=== PATIENT | male | born 1940 | race Caucasian/White ===

== ENCOUNTER 2016-12-31 07:36 | Day surgery (SDC) | payer OTHER, BC ==
[2016-12-29 13:56] VITALS: BMI 24.9
[2016-12-31] MEDS ORDERED: oxyCODONE HCL 5 MG TABLET PO PRN (09:04)
[2016-12-31] MEDS ORDERED: ONDANSETRON 4 MG/2 ML VIAL IVPUSH PRN (09:04)
[2016-12-31] MEDS ORDERED: IBUPROFEN 800 MG/8 ML IJ IVPB PRN (09:04)
[2016-12-31] MEDS ORDERED: BUPIVACAINE HCL/PF 0.5% (5MG/ML) 10 ML VIAL ONE (09:05)
[2016-12-31] MEDS ORDERED: LIDOCAINE 1%/EPI 1:100000 (50 ML MULTI DOSE VIAL) ONE (09:05)
[2016-12-31] MEDS ORDERED: LIDOCAINE HCL/PF 2% SDV 5ML VIAL ONE (09:09)
[2016-12-31] MEDS ORDERED: PROPOFOL 20 ML ONE (09:09)
[2016-12-31] MEDS ORDERED: SUCCINYLCHOLINE CHLORIDE 200 MG/10 ML VIAL ONE (09:10)
[2016-12-31] MEDS ORDERED: MIDAZOLAM HCL 2 MG/2 ML SINGLE DOSE VIAL ONE (09:10)
[2016-12-31] MEDS ORDERED: LACTATED RINGERS SOLUTION 1,000 ML IV SCH ×2 (09:15→10:00)
[2016-12-31] MEDS ORDERED: CLINDAMYCIN PHOSPHATE 600 MG/4 ML VIAL IVPB ONE (09:33)
[2016-12-31] MEDS ORDERED: CLINDAMYCIN PHOSPHATE 600 MG/4 ML VIAL ONE (09:34)
[2016-12-31] MEDS ORDERED: ROCURONIUM BROMIDE 50 MG/5 ML VIAL ONE (09:38)
[2016-12-31] MEDS ORDERED: LIDOCAINE 1%/EPI 1:100000 (20 ML MULTI DOSE VIAL) IJ ONE ×2 (09:50)
[2016-12-31] MEDS ORDERED: NEOSTIGMINE METHYLSULFATE 0.5 MG/ML - 10 ML MDV ONE (09:54)
[2016-12-31] MEDS ORDERED: GLYCOPYRROLATE 0.2 MG/1 ML VIAL ONE ×2 (09:54→10:08)
--- NOTE | 2016-12-31 11:06 | OP ---
DATE OF OPERATION: 12/31/2016 SURGICAL ATTENDING: Kingston Stevenson MD PREOPERATIVE DIAGNOSIS: Left tongue mass. POSTOPERATIVE DIAGNOSIS: Left tongue mass. ANESTHESIA: General endotracheal. PROCEDURE: Left tongue mass excision. DESCRIPTION OF PROCEDURE: The patient was taken to the operating room, placed in a supine position, endotracheally intubated. Eyes were protected. Examination revealed a subcentimeter left dorsal tongue nodule which was darkened in color and palpable. No other lesion in the mouth was identified. Lidocaine 1% with epinephrine mixed with 0.50% Marcaine was injected in and around the area of the lesion. Some time was allowed to pass for the local anesthesia to take effect. Thereafter, a 15 blade was used to excise the mass. The mass was excised entirely and intact. It was passed off the field for evaluation by Pathology. Hemostasis was achieved with electrocautery. The wound was then closed with four 4-0 plain sutures. Hemostasis was achieved. The mouth was suctioned. The patient was then extubated, awakened, and taken to recovery in stable condition. Dr. Stevenson, the attending surgeon, was present throughout the entire procedure. KINGSTON STEVENSON M.D. [id number]
[2016-12-31] MEDS ORDERED: oxyCODONE HCL 5 MG TABLET ONE (11:44)
[2016-12-31 11:46] VITALS: TEMP 98
[2016-12-31 12:50] VITALS: BP 127/76; PULSE 64
--- NOTE | 2017-01-03 09:46 | PATH ---
Surgical Pathology Report Patient Name: [facility]. Rec. #: [id number] /Age/Gender: 1940 (Age: 76) / M Account: [id number] Location: [facility] SURGICAL Taken: 12/31/2016 Received: 12/31/2016 Reported: 01/03/2017 Physicians: Collin Madrid M.D. Specimen(s) Received LEFT TONGUE MASS Clinical History Left tongue mass Final Diagnosis LEFT TONGUE MASS, EXCISION: BENIGN SQUAMOUS MUCOSA WITH THROMBOSED BLOOD VESSEL SHOWING ORGANIZATION WITH ENDOTHELIAL HYPERPLASIA, CONSISTENT WITH PAPILLARY ENDOTHELIAL HYPERPLASIA (SHEREEN TUMOR). NO MALIGNANT FEATURES IDENTIFIED. Electronically Signed Sebastien Valentin M.D. Gross Description Received in formalin labeled "left tongue mass," is a 0.8 x 0.6 cm bhatia, elliptical, unoriented portion of soft tissue excised to depth of 0.5 cm. Sectioning reveals a red-brown parenchyma. The base is inked blue and the specimen is trisected. The specimen is entirely submitted in one cassette. /12/31/201612/31/2016
== END 2016-12-31 12:25 | disposition home or self-care (01) ==
LOC: JASU-SURG 07:36
PROVIDERS: ATTEND Surgery
PROC: 0CB70ZX Excision of Tongue, Open Approach, Diagnostic (ICD-10-PCS; principal; 2016-12-31 09:00)
DX: D49.0 Neoplasm of unspecified behavior of digestive system (principal)
CPT/HCPCS: 88305-TC; 94760

== ENCOUNTER 2017-01-01 02:42 | Emergency (ER) | payer OTHER, BC ==
[2017-01-01 03:02] VITALS: BP 174/96; PULSE 115; TEMP 98.1; BMI 24.8
--- NOTE | 2017-01-01 04:23 | PDOC ---
History of Present Illness - General Chief Complaint: Urinary Problem Stated Complaint: PAIN, URINARY PROBLEM Time Seen by Provider: 01/01/17 04:08 History Source: Patient Exam Limitations: No Limitations - History of Present Illness Travel History: No Initial Comments: 01/01/17 04:23 76yo Male patient presents to ED c/o urinary retention s/p oral surgery. Patient had surgery [address] Madrid (Oncology) for mass on tongue. Patient states he has not voided since he was discharged 2 days ago. Patient reports he has been eating and drinking but no output. He denies fever, CP, diff breathing, hematuria, back pain, n/v/d, or any other complaints at this time. +Oliguria. Timing/Duration: reports: getting worse Quality: reports: severe, other (Pressure) Abdominal Pain Onset Location: reports: suprapubic Pain Radiation: reports: no radiation Past History - Travel Traveled outside of the country in the last 30 days: No Close contact w/someone who was outside of country & ill: No - Past Medical History Allergies/Adverse Reactions: Allergies Allergy/AdvReac Type Severity Reaction Status Date / Time Penicillins Allergy Intermediate Verified 01/01/17 03:02 ketoconazole AdvReac Intermediate Verified 01/01/17 03:02 Home Medications: Ambulatory Orders Omeprazole Magnesium [Prilosec Otc] 20 mg PO DAILY #0 tablet. 08/11/11 Aspirin [ASA -] 81 mg PO DAILY 12/29/16 Atorvastatin Ca [Lipitor] 10 mg PO DAILY 12/29/16 Lisinopril 2.5 mg PO DAILY 12/29/16 Anemia: No Asthma: No Cancer: No Cardiac Disorders: No CVA: No COPD: No CHF: No Dementia: No Diabetes: No GI Disorders: No Disorders: No HTN: Yes Hypercholesterolemia: Yes Liver Disease: No Seizures: No Thyroid Disease: No - Surgical History Abdominal Surgery: Yes (COLON RESECTION FOR DIVERTICULITIS 2011) Appendectomy: No Cardiac Surgery: No Cholecystectomy: No Lung Surgery: No Neurologic Surgery: No Orthopedic Surgery: No - Suicide/Smoking/Psychosocial Hx Smoking Status: No Smoking History: Never smoked Number of Cigarettes Smoked Daily: 0 Hx Alcohol Use: Yes (1-2/DAY) Drug/Substance Use Hx: No Substance Use Type: None Hx Substance Use Treatment: No Abd/GI Specific PMHX - Complaint Specific PMHX Colitis: No Diverticulitis: No Gall Bladder Disease: No GERD: No Hepatitis: No Irritable Bowel Synd (IBS): No Pancreatitis: No GI Ulcer Disease: No Review of Systems - Review of Systems Able to Perform ROS?: Yes Is the patient limited Sammarinese proficient: No ABD/GI: Yes: Abdominal Distended. No: Constipated, Diarrhea, Nausea, Poor Appetite, Poor Fluid Intake, Rectal Bleeding, Vomiting, Abdominal cramping : Yes: Pain, Other (Oliguria). No: Burning, Dysuria, Discharge, Frequency, Flank Pain, Hematuria, Urgency, Testicular Mass, Testicular Swelling, Testicular Pain Musculoskeletal: No: Back Pain All Other Systems: Reviewed and Negative *Physical Exam - Vital Signs Last Vital Signs Temp Pulse Resp BP Pulse Ox 98.1 F 115 H 20 174/96 99 01/01/17 02:58 01/01/17 02:58 01/01/17 02:58 01/01/17 02:58 01/01/17 02:58 - Physical Exam General Appearance: Yes: Nourished, Appropriately Dressed. No: Apparent Distress, Mild Distress, Moderate Distress, Severe Distress Respiratory/Chest: positive: Lungs Clear, Normal Breath Sounds. negative: Chest Tender, Respiratory Distress, Accessory Muscle Use, Labored Respiration, Rapid RR, Paradoxal Breathing, Stridor, Wheezing Cardiovascular: positive: Regular Rhythm, Regular Rate Gastrointestinal/Abdominal: positive: Normal Bowel Sounds, Tender, Soft, Distended, Tenderness (Suprapubic). negative: Guarding, Rebound Musculoskeletal: positive: Normal Inspection. 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 intact, Fully Oriented, Alert, Normal Mood/ Affect, Normal Response, Motor Strength / ED Treatment Course - LABORATORY CBC & Chemistry Diagram: 01/01/17 04:48 01/01/17 04:48 *DC/Admit/Observation/Transfer Diagnosis at time of Disposition: Retention of urine - Discharge Dispostion Disposition: HOME Condition at time of disposition: Improved Admit: No - Referrals Referrals: Carlton Edmonds MD., MD [Staff Physician] - - Patient Instructions Printed Discharge Instructions: DI for Urinary Retention in Men Additional Instructions: Follow up with your primary care provider this week for further evaluation. Call to schedule appointment. Also, follow up with your urologist or Dr. Edmonds (Urology) next week for further evaluation. Keep segovia in place until seen by specialist. Return if any concerns or worsening of symptoms for further evaluation. Print Language: OCCITAN
[2017-01-01 05:09] LABS: URINE APPEARANCE CLEAR; URINE BILIRUBIN NEGATIVE (NEGATIVE); URINE BLOOD 1+ (NEGATIVE); URINE COLOR LT. YELLOW; URINE GLUCOSE (UA) NEGATIVE (NEGATIVE); URINE KETONE NEGATIVE (NEGATIVE); URINE LEUK ESTERASE NEGATIVE (NEGATIVE); URINE NITRITE NEGATIVE (NEGATIVE); URINE PROTEIN NEGATIVE (NEGATIVE); URINE UROBILINOGEN 0.2 mg/dL (0.2-1.0)
[2017-01-01 05:10] LABS: BASOPHIL 0.4 % (0-2.0); EOSINOPHIL 0.2 % (0-4.5); MCH 27.5 pg (25.7-33.7); MCHC 32.4 g/dl (32.0-35.9); MEAN CELL VOLUME 84.8 fl (80-96); MEAN PLT VOLUME 8.1 fl (7.5-11.1); NEUTROPHILS 69.6 % (42.8-82.8); PLATELET COUNT 243 K/MM3 (134-434); RDW 14.6 % (11.9-15.9); WHITE BLOOD COUNT 12.3 K/mm3 (4.0-10.0)
[2017-01-01 05:17] LABS: URINE HYALINE CAST 1 /lpf; URINE MUCUS RARE; URINE RBC 6 /hpf (0-3)
[2017-01-01 05:31] LABS: ALBUMIN 3.6 g/dl (3.4-5.0); ANION GAP 7 (8-16); BILIRUBIN,TOTAL 0.3 mg/dL (0.2-1.0); CALCIUM 9.2 mg/dL (8.5-10.1); CO2 29 mmol/L (21-32); CREATININE 0.8 mg/dL (0.7-1.3); GLUCOSE,RANDOM 108 mg/dL (74-106); SGOT/AST 31 U/L (15-37); SGPT/ALT 23 U/L (12-78); TOT PROT 6.6 g/dl (6.4-8.2)
[2017-01-01 05:32] LABS: ALK PHOS 64 U/L (45-117)
[2017-01-01] MEDS ORDERED: traMADol HCL 50 MG TABLET PO ONE (06:30)
[2017-01-01] MEDS ORDERED: traMADol HCL 50 MG TABLET ONE (06:44)
== END 2017-01-01 06:48 | disposition home or self-care (01) ==
LOC: JER 02:42
PROC: 0T9B70Z Drainage of Bladder with Drainage Device, Via Natural or Artificial Opening (ICD-10-PCS; principal; 2017-01-01)
DX: N99.0 Postprocedural (acute) (chronic) kidney failure (principal); R33.8 Other retention of urine; I10 Essential (primary) hypertension
CPT/HCPCS: 36415; 51702; 80053; 81003; 81015; 85025; 87086; 99281-25